=== PATIENT | male | born 1965 | race Caucasian/White ===

== ENCOUNTER 2018-01-18 09:46 | Inpatient (IN) | payer MEDICARE, OTHER ==
[~2018-01-18] VITALS: Ht 170.2 cm; Wt 65.8 kg
[2018-01-18] MEDS ORDERED: BACL10TA PO (09:56)
--- NOTE | 2018-01-18 10:02 | NUR ---
PT BIB [facility] FROM HOME WHERE THE PT LIVES WITH MOTHER, PT HAS HAD CONSTIPATION FOR A COUPLE OF DAY, TRIED TO TREAT IT WITH OTC MEDS WHICH CAUSED DIAHREA SINCE NOW, PT ALSO CO N/V/ABDOMINAL PAIN SINCE LAST NIGHT AND URINARY RETENTION TODAY. PT C/O INCREASED EDEMA ON BOTH ANKLES. PT BEDBOUND DUE TO MS
[2018-01-18] MEDS ORDERED: LIDOCAINE 1%-EPI 1:100,000 20 ML VIAL ONE (10:15)
[2018-01-18] MEDS ORDERED: IV NORMAL SALINE 1000 ML BAG IV ONE (10:30)
--- NOTE | 2018-01-18 10:30 | NUR ---
CORRECTION TO PREVIOUS NOTE: PT JUST SAID THAT THE PT WAS ABLE TO MOVE FROM BED TO SCOOTER AND WALK ALTHOUGH WITH DIFFICULTY BEFORE. AND THAT THE PT HAS LEFT SIDE WEAKNESS DUE TO MS. BUT TODAY MORNING HE WAS NOT ABLE TO MOVE HIS USUAL BASE LINE.
[2018-01-18 10:39] LABS: BASOPHILS # (AUTO) 0.1 K/uL (0.0-8.0); BASOPHILS % (AUTO) 0.9 % (0.0-2.0); EOSINOPHILS # (AUTO) 0.1 K/uL (0.0-0.7); EOSINOPHILS % (AUTO) 1.4 % (0.0-7.0); HEMOGLOBIN 14.4 g/dL (12.5-16.3); LYMPHOCYTES # (AUTO) 1.1 K/uL (20.0-40.0); LYMPHOCYTES % (AUTO) 12.7 % (20.5-51.5); MEAN CORPUSCULAR HEMOGLOBIN 30.8 uug (23.8-33.4); MEAN CORPUSCULAR HGB CONC 34 g/dL (32.5-36.3); MEAN CORPUSCULAR VOLUME 89.7 fL (73.0-96.2); MONOCYTES # (AUTO) 0.7 K/uL (2.0-10.0); MONOCYTES % (AUTO) 7.8 % (0.0-11.0); NEUTROPHILS # (AUTO) 6.6 K/uL (1.8-8.9); NEUTROPHILS % (AUTO) 77.2 % (38.5-71.5); PLATELET COUNT (AUTO) 180 K/uL (152-348); RED BLOOD CELL COUNT(AUTO) 4.68 MIL/uL (4.06-5.63); WHITE BLOOD COUNT (AUTO) 8.6 K/uL (3.6-10.2)
[2018-01-18 10:48] LABS: *BILIRUBIN,URIN NEGATIVE (NEGATIVE); *BLOOD, URINE Trace-intact (NEGATIVE); *CLARITY,URINE CLEAR (CLEAR); *COLOR,URINE YELLOW (YELLOW); *KETONES,URINE NEGATIVE (NEGATIVE); *PROTEIN,URINE NEGATIVE (NEGATIVE); *UROBILINOGEN,URINE 0.2 E.U./dl (NORMAL); LEUKOCYTE ESTERASE ,URINE NEGATIVE (NEGATIVE); NITRITE, URINE NEGATIVE (NEGATIVE); PH,URINE 8.5 (5.0-8.0); UGLUCOSE NEGATIVE (NEGATIVE)
[2018-01-18 10:49] LABS: CREATININE 0.8 mg/dL (0.6-1.3); POTASSIUM 4.2 mmol/L (3.5-5.1)
[2018-01-18 10:53] LABS: BACTERIA,URINE FEW /HPF (NONE SEEN); SQUAMOUS EPITHELIAL CELL,UR FEW /HPF (NONE SEEN); WBC,URINE 0-3 /HPF (0-3)
[2018-01-18 10:54] LABS: MUCUS,URINE FEW /LPF (0-FEW)
[2018-01-18 10:55] LABS: BILIRUBIN,TOTAL 1.1 mg/dL (0.2-1.0); TOTAL PROTEIN, SERUM 7.1 g/dL (6.4-8.2)
--- NOTE | 2018-01-18 12:11 | NUR ---
jake cohen talked to dr. aleman for uro consult
[2018-01-18] MEDS ORDERED: ACETAMINOPHEN 325 MG TABLET PO PRN (12:45)
[2018-01-18] MEDS ORDERED: MAGNESIUM HYDROXIDE 30 ML LIQUID UDC PO PRN (12:45)
[2018-01-18] MEDS ORDERED: ONDANSETRON 4 MG/2 ML VIAL IV PRN (12:45)
[2018-01-18] MEDS ORDERED: methylPREDNISolone SOD SUCC 125 MG/2 ML VIAL IV ONE (12:45)
[2018-01-18 13:19] VITALS: BP 110/74
--- NOTE | 2018-01-18 13:21 | NUR ---
s2 year old male admitted to room 220 for weakens .pt is axox4.orient the pt to room and surroundings. called for admission orders
[2018-01-18] MEDS: ENOXAPARIN SODIUM 40 MG/0.4 ML DISP.SYRIN SQ SCH (14:04)
[2018-01-18] MEDS: IV NS 1000 ML 1,000 ML IV PRN (14:10)
[2018-01-18 15:58] VITALS: BP 106/70
[2018-01-18] MEDS: methylPREDNISolone SOD SUCC 125 MG/2 ML VIAL IV SCH ×2 (17:39→23:52)
--- NOTE | 2018-01-18 19:05 | NUR ---
MRI APPROVED BY DR. EARL.
[2018-01-18 19:33] VITALS: BP 116/72
--- NOTE | 2018-01-18 19:40 | NUR ---
RECEIVED PATIENT IN BED ALERT ORIENTED NO SOB NO CHEST PAIN NOTED, NO COMPLAIN OF PAIN AT THIS TIME. KEPT CLEAN DRY AND COMFORTABLE. PATIENT AWARE OF PROCEDURE MRI OF THE BRAIN WITH/WO CONTRAST AND STATED HE WILL SIGN THE CONSENT. CALL LIGHT WITHIN REACH.
[2018-01-19] MEDS: HYDROCODONE/APAP 5-325MG TABLET PO PRN ×2 (01:51→20:18)
[2018-01-19 03:43] VITALS: BP 110/68
[2018-01-19] MEDS: IV NS 1000 ML 1,000 ML IV PRN ×2 (04:03→23:41)
[2018-01-19] MEDS: methylPREDNISolone SOD SUCC 125 MG/2 ML VIAL IV SCH ×4 (05:38→23:39)
[2018-01-19 05:53] LABS: BASOPHILS % (AUTO) 0.1 % (0.0-2.0); HEMOGLOBIN 12.9 g/dL (12.5-16.3); LYMPHOCYTES # (AUTO) 0.3 K/uL (20.0-40.0); LYMPHOCYTES % (AUTO) 5.2 % (20.5-51.5); MEAN CORPUSCULAR HEMOGLOBIN 30.2 uug (23.8-33.4); MEAN CORPUSCULAR HGB CONC 34 g/dL (32.5-36.3); MEAN CORPUSCULAR VOLUME 88.7 fL (73.0-96.2); MONOCYTES # (AUTO) 0.1 K/uL (2.0-10.0); MONOCYTES % (AUTO) 1.6 % (0.0-11.0); NEUTROPHILS # (AUTO) 6.2 K/uL (1.8-8.9); NEUTROPHILS % (AUTO) 93.1 % (38.5-71.5); PLATELET COUNT (AUTO) 167 K/uL (152-348); RED BLOOD CELL COUNT(AUTO) 4.28 MIL/uL (4.06-5.63); WHITE BLOOD COUNT (AUTO) 6.6 K/uL (3.6-10.2)
[2018-01-19 06:22] LABS: CARBON DIOXIDE 25 mmol/L (21-32); CHLORIDE 108 mmol/L (98-107); CREATININE 0.5 mg/dL (0.6-1.3); GLUCOSE 130 mg/dL (74-106); MAGNESIUM 2.2 mg/dL (1.8-2.4); PHOSPHOROUS 3.2 mg/dL (2.5-4.9); POTASSIUM 4.1 mmol/L (3.5-5.1); UREA NITROGEN, BLOOD 11 mg/dL (7-18)
--- NOTE | 2018-01-19 06:27 | NUR ---
Patient slept for 8 hrs, continent of bladder, uses bathroom for bladder elimination, no complain of pain, with episodes of anxiety, wanting to leave the room and risk for elopement, cont on sitter for safety. cont to monitor. Addendum: 01/19/18 at 0641 by LEA JAMES RN Patient slept for 8 hrs, continet of bladder, uses bathroom for bladder elimination, no complain of pain, with episodes of anxiety, wanting to leave the room and risk for elopement, cont on sitter for safety, cont to monitor, charting in error.
--- NOTE | 2018-01-19 06:41 | NUR ---
Patient slept on and off, no complain of pain, patient refused to be turned side by side, complain of buttock/tail bone pain, medicated for pain, with help after one hour, patient signed consent for mri with contrast and without contrast, heels elevated with pillow, call light within reach.
--- NOTE | 2018-01-19 09:35 | NUR ---
PT TRANSPORTED TO [place] FOR MRI TEST.
[2018-01-19] MEDS: DOCUSATE SODIUM 250 MG CAPSULE PO SCH ×3 (10:15→20:18)
[2018-01-19] MEDS ORDERED: MAGNESIUM HYDROXIDE 30 ML LIQUID UDC PO PRN (10:15)
--- NOTE | 2018-01-19 10:15 | NUR ---
PATIENT REFUSED COLACE, PT STATED HE PREFERS TAKING STOOL SOFTENER AT NIGHT BEFORE BEDTIME.
[2018-01-19] MEDS ORDERED: LORAZEPAM 2 MG/1 ML VIAL IV PRN (11:30)
--- NOTE | 2018-01-19 12:15 | NUR ---
PATIENT ARRIVED FROM MRI PROCEDURE VIA GURNEY. PATIENT IS ALERT, IN NO DISTRESS.
[2018-01-19] MEDS: ENOXAPARIN SODIUM 40 MG/0.4 ML DISP.SYRIN SQ SCH (13:14)
[2018-01-19 16:09] VITALS: BP 101/68
--- NOTE | 2018-01-19 18:25 | NUR ---
PATIENT C/O OF LOWER ABDOMINAL PRESSURE AND SLIGHT PAIN AND FEELS THAT HIS URINE IS NOT DRAINING. USED BLADDER SCANNER, RESULT WAS ZERO ML OF URINE IN THE BLADDER. ANDRADE CATH INTACT, PATENT, DRAINING YELLOW SLIGHTLY DARK URINE. WILL CONTINUE TO MONITOR AND ENDORSE TO SALES SERVICE REPRESENTATIVE RN.
--- NOTE | 2018-01-19 19:40 | NUR ---
RECEIVED PT AWAKE ON BED, AAOX4, DENIES ANY SOB OR CHEST PAIN. IV SITE ON RFA, PATENT AND INTACT. ON FC, DRAINING WELL VIA GRAVITY. PT COMPLAIN OF PRESSURE AND SLIGHT PAIN ON LOWER ABDOMINAL AREA, REQUESTING TO HAVE FC CHANGED. PHONE CALL MADE TO DR SOL PEDRAZA, RECEIVED ORDER TO CHANGE CURRENT FC. ORDER RECEIVED AND CARRIED OUT.
[2018-01-19 20:15] VITALS: BP 113/77
--- NOTE | 2018-01-19 20:30 | NUR ---
FC CHANGED, PT VERBALIZED RELIEF OF PRESSURE ON LOWER ABDOMEN AFTER CHANGING FC. FC DRAINING WELL VIA GRAVITY, CLEAR YELLOW URINE, NO COMPLAINTS OF PAIN, WILL CONTINUE TO MONITOR.
--- NOTE | 2018-01-20 00:15 | NUR ---
PT COMPLAINTS OF STIFFNESS AND REQUESTING TO HAVE BACLOFEN 10 MG (HOME MEDICATION). PT IS AWARE THAT MEDICATION IS HELD AT ADMISSION. PAGED CORPORATE REAL ESTATE MANAGER , RECEIVED ORDER FROM ODALIS MORE TO GIVE ONE TIME DOSE OF BACLOFEN 10MG TONIGHT. ORDER CARRIED OUT.
[2018-01-20] MEDS ORDERED: BACLOFEN 10 MG TABLET PO ONE (00:30)
[2018-01-20 05:21] VITALS: BP 110/80
[2018-01-20] MEDS: methylPREDNISolone SOD SUCC 125 MG/2 ML VIAL IV SCH ×4 (05:47→23:28)
--- NOTE | 2018-01-20 06:56 | NUR ---
PT RESTING COMFORTABLY ON BED, AAOX4, NO SIGNS OF RESPIRATORY DISTRESS NOTED. ON FC, DRAINING WELL VIA GRAVITY. IV SITE ON RFA, PATENT AND INTACT. SAFE ENVIRONMENT MAINTAINED AT ALL TIMES, CALL ULLOA WITHIN REACH.
[2018-01-20] MEDS: ENOXAPARIN SODIUM 40 MG/0.4 ML DISP.SYRIN SQ SCH (08:14)
[2018-01-20] MEDS: BACLOFEN 10 MG TABLET PO SCH ×2 (10:29→16:39)
[2018-01-20 11:44] VITALS: BP 113/65
[2018-01-20] MEDS: IV NS 1000 ML 1,000 ML IV PRN (13:09)
[2018-01-20] MEDS: HYDROCODONE/APAP 5-325MG TABLET PO PRN ×2 (15:56→20:13)
[2018-01-20 16:00] VITALS: BP 113/71
[2018-01-20] MEDS: DOCUSATE SODIUM 250 MG CAPSULE PO SCH (20:13)
[2018-01-20] MEDS: Z GUARD REMEDY PASTE 57 GM TUBE TOP PRN (20:14)
[2018-01-20 20:37] VITALS: BP 129/77
--- NOTE | 2018-01-20 21:04 | NUR ---
Patient awake & alert no SOB denies chest pain c/o constipation x 2 days. Vital signs WNL. Routine night meds given, Milk of magnesia po provided. For surgery procedure tomorrow, instructed to be NPO post breakfast. Patient verbalized understanding.
[2018-01-21] MEDS: IV NS 1000 ML 1,000 ML IV PRN ×2 (00:47→15:53)
[2018-01-21 05:35] VITALS: BP 107/72
[2018-01-21] MEDS: methylPREDNISolone SOD SUCC 125 MG/2 ML VIAL IV SCH ×4 (05:58→23:12)
[2018-01-21] MEDS: HYDROCODONE/APAP 5-325MG TABLET PO PRN ×2 (06:43→20:49)
--- NOTE | 2018-01-21 07:19 | NUR ---
Medicated for pain PRN. No acute resp distress. NPO post breakfast, for Right Ureteroscopy possible Lithotripsy procedure today.
[2018-01-21] MEDS: BACLOFEN 10 MG TABLET PO SCH ×2 (08:07→17:00)
[2018-01-21] MEDS: ENOXAPARIN SODIUM 40 MG/0.4 ML DISP.SYRIN SQ SCH (09:00)
[2018-01-21] MEDS ORDERED: ONDANSETRON 4 MG/2 ML VIAL IV ONE (11:12)
[2018-01-21] MEDS ORDERED: PROPOFOL 200 MG/20 ML BOTTLE IV ONE (11:12)
[2018-01-21] MEDS ORDERED: EPHEDRINE SULFATE 50 MG/ML AMPUL MC ONE (11:12)
[2018-01-21] MEDS ORDERED: IV NORMAL SALINE 1000 ML BAG IV ONE (11:12)
[2018-01-21] MEDS ORDERED: LIDOCAINE HCL 1% 20 ML VIAL MC ONE (11:12)
[2018-01-21] MEDS ORDERED: CEFAZOLIN 1 G VIAL MC ONE (11:12)
[2018-01-21 11:37] VITALS: BP 117/73
[2018-01-21] MEDS ORDERED: IOHEXOL 300MG/ML 50 ML VIAL ONE (12:37)
[2018-01-21] MEDS ORDERED: BISACODYL 10 MG SUPP.RECT RC ONE (13:45)
[2018-01-21 16:25] VITALS: BP 123/85
--- NOTE | 2018-01-21 17:00 | NUR ---
pt went to or for surgery via bed in stable condition.
[2018-01-21] MEDS ORDERED: MIDAZOLAM HCL 2 MG/2 ML VIAL ONE (17:20)
[2018-01-21] MEDS ORDERED: FENTANYL CITRATE 100 MCG/2 ML AMPUL ONE (17:20)
[2018-01-21] MEDS ORDERED: METHYLENE BLUE 50 MG/10 ML AMPUL (0.5%) ONE (17:22)
[2018-01-21 20:00] VITALS: BP 131/83
--- NOTE | 2018-01-21 20:15 | NUR ---
Received from Recovery room, patient awake alert & oriented no SOB denies chest pain. Complaining of brar catheter site. [place] tinged brar output noted. Vital signs are WNL. Offered pain meds but patient refused. Instructed to increase fluid intake, patient verbalized understanding.
[2018-01-21] MEDS: DOCUSATE SODIUM 250 MG CAPSULE PO SCH (20:49)
[2018-01-21] MEDS: ZOLPIDEM 5 MG TABLET PO PRN (21:02)
--- NOTE | 2018-01-21 21:05 | NUR ---
Patient requested medication for insomnia. Ambien 5mg po given.
--- NOTE | 2018-01-21 23:00 | NUR ---
Patient asleep, no sign of distress.
--- NOTE | 2018-01-22 03:10 | NUR ---
Awake at this time, c/o gen itchiness, patient asking for Benadryl. Paged EPIC supervisor agricultural education for orders.
[2018-01-22] MEDS ORDERED: diphenhydrAMINE 50 MG/1 ML VIAL IV ONE (03:15)
--- NOTE | 2018-01-22 03:34 | NUR ---
Benadryl 25 mg IVP adm for itchiness. Will continue to monitor.
[2018-01-22 04:00] VITALS: BP 117/79
[2018-01-22] MEDS: methylPREDNISolone SOD SUCC 125 MG/2 ML VIAL IV SCH ×3 (05:08→17:04)
[2018-01-22] MEDS: IV NS 1000 ML 1,000 ML IV PRN ×2 (06:49→20:01)
[2018-01-22 07:25] LABS: BASOPHILS % (AUTO) 0.3 % (0.0-2.0); HEMATOCRIT 36.8 % (36.7-47.1); HEMOGLOBIN 12.5 g/dL (12.5-16.3); LYMPHOCYTES # (AUTO) 0.2 K/uL (20.0-40.0); LYMPHOCYTES % (AUTO) 1.1 % (20.5-51.5); MEAN CORPUSCULAR HEMOGLOBIN 30.9 uug (23.8-33.4); MEAN CORPUSCULAR HGB CONC 34 g/dL (32.5-36.3); MEAN CORPUSCULAR VOLUME 90.9 fL (73.0-96.2); MONOCYTES # (AUTO) 0.5 K/uL (2.0-10.0); NEUTROPHILS # (AUTO) 16.1 K/uL (1.8-8.9); NEUTROPHILS % (AUTO) 95.6 % (38.5-71.5); PLATELET COUNT (AUTO) 160 K/uL (152-348); RED BLOOD CELL COUNT(AUTO) 4.05 MIL/uL (4.06-5.63); WHITE BLOOD COUNT (AUTO) 16.8 K/uL (3.6-10.2)
[2018-01-22 07:45] LABS: BILIRUBIN,TOTAL 0.6 mg/dL (0.2-1.0); CREATININE 0.7 mg/dL (0.6-1.3); MAGNESIUM 2.3 mg/dL (1.8-2.4); PHOSPHOROUS 3.9 mg/dL (2.5-4.9); POTASSIUM 3.9 mmol/L (3.5-5.1); TOTAL PROTEIN, SERUM 5.1 g/dL (6.4-8.2)
[2018-01-22] MEDS: ENOXAPARIN SODIUM 40 MG/0.4 ML DISP.SYRIN SQ SCH (08:29)
[2018-01-22] MEDS: BACLOFEN 10 MG TABLET PO SCH ×2 (08:29→17:04)
[2018-01-22 08:52] LABS: THYROID STIMULATING HORMONE 0.173 mIU/mL (0.358-3.740)
[2018-01-22 10:58] VITALS: BP 132/72
[2018-01-22 15:00] VITALS: BP 128/74
--- NOTE | 2018-01-22 18:33 | NUR ---
PT OBSERVED RESTING IN BED, DENIES PAIN, REPOSITIONING OF THE BODY PROVIDED, CALM, COOPERATIVE, COMPLIANT WITH MEDICATIONS, DIET AND CARE. FAMILY AT BEDSIDE THROUGHOUT THE DAY. ANDRADE CONTINUES TO DRAIN AND IS PATENT, URINE PINKISH/YELLOW IN COLOR WITH RED SEDIMENT. CONTINUE TO MONITOR PT.
[2018-01-22 20:00] VITALS: BP 121/75
[2018-01-22] MEDS: ZOLPIDEM 5 MG TABLET PO PRN (20:12)
[2018-01-22] MEDS: DOCUSATE SODIUM 250 MG CAPSULE PO SCH (20:12)
[2018-01-22] MEDS: Z GUARD REMEDY PASTE 57 GM TUBE TOP PRN (20:24)
[2018-01-22] MEDS: methylPREDNISolone SOD SUCC 40 MG/ML VIAL IV SCH (20:40)
--- NOTE | 2018-01-23 05:00 | NUR ---
No significant change, brar catheter in place, hematuria noted. Urine sample sent to lab for UA C&S. Vital signs stable.
[2018-01-23 05:13] VITALS: BP 128/72
[2018-01-23] MEDS: methylPREDNISolone SOD SUCC 40 MG/ML VIAL IV SCH ×2 (06:14→20:17)
[2018-01-23 06:28] LABS: BASOPHILS % (AUTO) 0.1 % (0.0-2.0); HEMOGLOBIN 12.6 g/dL (12.5-16.3); LYMPHOCYTES # (AUTO) 0.3 K/uL (20.0-40.0); LYMPHOCYTES % (AUTO) 2.3 % (20.5-51.5); MEAN CORPUSCULAR HEMOGLOBIN 30.8 uug (23.8-33.4); MEAN CORPUSCULAR HGB CONC 34 g/dL (32.5-36.3); MEAN CORPUSCULAR VOLUME 90.5 fL (73.0-96.2); MONOCYTES # (AUTO) 0.9 K/uL (2.0-10.0); MONOCYTES % (AUTO) 6.1 % (0.0-11.0); NEUTROPHILS # (AUTO) 12.8 K/uL (1.8-8.9); NEUTROPHILS % (AUTO) 91.5 % (38.5-71.5); PLATELET COUNT (AUTO) 147 K/uL (152-348); RED BLOOD CELL COUNT(AUTO) 4.09 MIL/uL (4.06-5.63)
[2018-01-23 06:34] LABS: CARBON DIOXIDE 29 mmol/L (21-32); CHLORIDE 108 mmol/L (98-107); CREATININE 0.6 mg/dL (0.6-1.3); GLUCOSE 104 mg/dL (74-106); MAGNESIUM 2.2 mg/dL (1.8-2.4); PHOSPHOROUS 3.2 mg/dL (2.5-4.9); POTASSIUM 3.9 mmol/L (3.5-5.1); UREA NITROGEN, BLOOD 18 mg/dL (7-18)
[2018-01-23 07:24] LABS: THYROID STIMULATING HORMONE 0.183 mIU/mL (0.358-3.740)
[2018-01-23 07:36] LABS: *BLOOD, URINE 3+ (NEGATIVE); *CLARITY,URINE CLOUDY (CLEAR); *COLOR,URINE AMBER (YELLOW); *KETONES,URINE NEGATIVE (NEGATIVE); *PROTEIN,URINE 2+ (NEGATIVE); LEUKOCYTE ESTERASE ,URINE 1+ (NEGATIVE); NITRITE, URINE POSITIVE (NEGATIVE); PH,URINE 6.5 (5.0-8.0); UGLUCOSE NEGATIVE (NEGATIVE)
[2018-01-23] MEDS: BACLOFEN 10 MG TABLET PO SCH ×2 (08:14→17:05)
[2018-01-23 08:44] LABS: *BILIRUBIN,URIN 1+ (NEGATIVE)
[2018-01-23 08:45] LABS: BACTERIA,URINE FEW /HPF (NONE SEEN); RBC,URINE TNTC /HPF (0-3); SQUAMOUS EPITHELIAL CELL,UR FEW /HPF (NONE SEEN)
[2018-01-23] MEDS: IV NS 1000 ML 1,000 ML IV PRN ×2 (09:24→23:56)
[2018-01-23] MEDS: HYDROCODONE/APAP 5-325MG TABLET PO PRN ×2 (10:15→20:18)
--- NOTE | 2018-01-23 10:38 | NUR ---
PT C/O LOWER ABDOMINAL PAIN 03/26, " "PRESSURE AND BURNING". BLADDER SCAN DONE, 121ML IN BLADDER.UROLOGIST NOTIFIED. PROVIDED PAIN MEDS. PT WAS REPOSITIONED ON TO RIGHT SIDE. URINE BEGAN TO FLOW INTO ANDRADE. PT VERBALIZES RELIEF 10/24. CONTINUE TO MONITOR PT.
[2018-01-23 11:43] VITALS: BP 124/71
[2018-01-23] MEDS ORDERED: CEFTRIAXONE 1 G in IV DEXTROSE 5% 50 ML IV SCH (12:00)
[2018-01-23] MEDS: CEFTRIAXONE 1 G in IV DEXTROSE 5% 50 ML IV SCH (12:47)
[2018-01-23 15:48] VITALS: BP 108/62
--- NOTE | 2018-01-23 18:50 | NUR ---
PT OBSERVED RESTING BED CALM, COOPERATIVE, NO SIGNS OF RESPIRATORY DISTRESS. ANDRADE CATHETER PATENT AND DRAIN PINK URINE. CONTINUE TO MONITOR PT.
[2018-01-23 20:00] VITALS: BP 120/78
--- NOTE | 2018-01-23 20:00 | NUR ---
Pt awake, alert and cooperative. In no apparent acute distress. IVF infusing well at right arm, site benign. Kraus cath intact and patent, color remains pink tinged. Medications reviewed per pt request and pt expresses adequate understanding. States awareness of DC plans to [facility] in AM and is looking forward to getting better.
[2018-01-23] MEDS: DOCUSATE SODIUM 250 MG CAPSULE PO SCH (20:17)
--- NOTE | 2018-01-24 04:00 | NUR ---
Has been sleeping. Received IV Ativan at HS. In no acute distress.
[2018-01-24 04:35] VITALS: BP 123/77
--- NOTE | 2018-01-24 06:00 | NUR ---
Stable uneventful night. Continues to sleep.
[2018-01-24] MEDS: CEFTRIAXONE 1 G in IV DEXTROSE 5% 50 ML IV SCH (08:34)
[2018-01-24] MEDS: methylPREDNISolone SOD SUCC 40 MG/ML VIAL IV SCH (08:34)
[2018-01-24] MEDS: BACLOFEN 10 MG TABLET PO SCH (08:34)
[2018-01-24] MEDS: HYDROCODONE/APAP 5-325MG TABLET PO PRN ×2 (08:43→12:53)
[2018-01-24] MEDS ORDERED: FAMO-132 PO (10:31)
[2018-01-24] MEDS ORDERED: ACET325T53 PO (10:31)
[2018-01-24] MEDS ORDERED: PRED20TA PO (10:31)
[2018-01-24] MEDS ORDERED: DOCU250C14 PO (10:31)
[2018-01-24] MEDS ORDERED: ZOLP5TAB8 PO (10:31)
[2018-01-24] MEDS ORDERED: CEFT1VIA15 IV (10:31)
[2018-01-24] MEDS ORDERED: HYDR-3326 PO (10:31)
[2018-01-24] MEDS ORDERED: ACID1TAB4 PO (10:31)
[2018-01-24] MEDS ORDERED: MAGN400O6 PO (10:31)
[2018-01-24 11:31] VITALS: BP 133/77
--- NOTE | 2018-01-24 14:04 | NUR ---
ANDRADE INTACT AND PATENT, URINE IS PINK IN COLOR WITH RED SEDIMENT. CONTINUE TO MONITOR PT.
--- NOTE | 2018-01-24 14:55 | NUR ---
PT DC TO [facility] IN [place]. PT LEFT VIA GURNEY IN AMBULANCE. PT D/C WITH EXIT-CARE PACKET, ALL BELONGINGS, VALUABLES, AND ANDRADE CATHETER. ANDRADE IS PATENT. REPORT GIVEN TO JOSH AT THE FACILITY.
== END 2018-01-24 14:20 | DRG 59 ==
LOC: ER 09:48 → TELE 12:29 → MED 13:13
PROVIDERS: ADMIT Internal Medicine; ATTEND Internal Medicine
PROC: 0T768DZ Dilation of Right Ureter with Intraluminal Device, Via Natural or Artificial Opening Endoscopic (ICD-10-PCS; 2018-01-21)
PROC: BT1DYZZ Fluoroscopy of Right Kidney, Ureter and Bladder using Other Contrast (ICD-10-PCS; 2018-01-21)
PROC: 0T768DZ Dilation of Right Ureter with Intraluminal Device, Via Natural or Artificial Opening Endoscopic (ICD-10-PCS; principal; 2018-01-21 17:45)
DX: G35 Multiple sclerosis (principal); N13.2 Hydronephrosis with renal and ureteral calculous obstruction; D68.59 Other primary thrombophilia; N39.0 Urinary tract infection, site not specified; K52.1 Toxic gastroenteritis and colitis; R53.1 Weakness; M62.838 Other muscle spasm; Z87.891 Personal history of nicotine dependence; Q63.8 Other specified congenital malformations of kidney; E05.90 Thyrotoxicosis, unspecified without thyrotoxic crisis or storm; Z74.09 Other reduced mobility; D72.829 Elevated white blood cell count, unspecified; T38.0X5A Adverse effect of glucocorticoids and synthetic analogues, initial encounter; Y92.230 Patient room in hospital as the place of occurrence of the external cause; Z98.890 Other specified postprocedural states; T47.4X5A Adverse effect of other laxatives, initial encounter; Y92.009 Unspecified place in unspecified non-institutional (private) residence as the place of occurrence of the external cause; K59.00 Constipation, unspecified
CPT/HCPCS: 36415; 70030-TC; 70450; 70553; 71045; 74018; 76000; 83735; 84100; 84443; 84550; 85025; 85730; 87077; 87086; 93005; 93307; 97110; 97112; 97165; 97530; A4663; C1758; C1769; C1876; J0690; J0696; J1200; J1650; J2060; J2250; J2405; J2920; J2930; J3010; J3490; J7030; J7060; Q9967